=== PATIENT | male | born 1945 | race Caucasian/White ===

== ENCOUNTER 2016-08-27 06:24 | Day surgery (SDC) | payer BC ==
[2016-08-20 11:19] LABS: HEMOGLOBIN 12.6 g/dL (13.6-17.8)
[2016-08-20 11:21] LABS: HEMATOCRIT 36.8 % (40.0-51.0)
--- NOTE | ~2016-08-27 | OP ---
Record Of Operation [facility] [address] [place]. [address] NAME: SUNDAY BENITEZ : 43 STATUS : REG [facility]#: [id number] AGE: 70 ADM/REG DATE : 08/27/16 MR#: [id number] REPORT SERV DATE: 08/27/16 DICTATED BY: JASBIR ARMENDARIZ III DATE: 08/27/16 REPORT STATUS : Draft TRANSCRIBED BY: MODL DATE: 08/27/16 DATE OF PROCEDURE: 08/27/2016 PREOPERATIVE DIAGNOSIS: Elevated prostate-specific antigen. POSTOPERATIVE DIAGNOSIS: Elevated prostate-specific antigen, enlarged prostate. PROCEDURES: 1. Transrectal ultrasound of prostate gland. 2. Ultrasound guidance. 3. Needle biopsy of the prostate. SURGEON: Jasbir Armendariz M.D. ANESTHESIA: MAC. INDICATIONS: Mr. Benitez is a 70-year-old white male with elevated PSA of 7. He has been counseled. Consent is obtained for the above procedure. DESCRIPTION OF PROCEDURE: After consent was obtained, the patient was identified, and he was taken to the OR. He was left on the stretcher and placed in the left lateral decubitus position. MAC anesthesia was administered. Ultrasound probe was inserted. A three- dimensional volume was 86 mL. Ultrasound guidance was activated and needle biopsy was then performed. There were two cores from both the right and left base, two cores from the right and left apex, and then three cores from the right and left mid gland. There was no excessive bleeding noted. A hemorrhoid roll was then placed in the rectum. The patient was then taken to phase II recovery in stable condition. PH/MODL Jasbir Armendariz III, M.D. / [id number] CC: Jaja Meyers III, M.D.
[~2016-08-27 06:24] MED LIST: ASAB PO; VITAMINS PO
[2016-11-14] MEDS ORDERED: FISH-EPA1000 MG PO (14:35)
[2016-11-14] MEDS ORDERED: OCUVITE PO (14:36)
[2016-11-14] MEDS ORDERED: TRIPLEFLEX PO (14:36)
[2016-11-14] MEDS ORDERED: MULTIVITAMI1 PO (14:36)
== END 2016-08-27 16:45 | disposition home or self-care (01) ==
LOC: SDC 06:24
PROVIDERS: Urology
PROC: 0VB03ZX Excision of Prostate, Percutaneous Approach, Diagnostic (ICD-10-PCS; principal; 2016-08-27 07:45)
DX: C61 Malignant neoplasm of prostate (principal); R97.20 Elevated prostate specific antigen [PSA]; M19.90 Unspecified osteoarthritis, unspecified site; Z98.41 Cataract extraction status, right eye; Z98.42 Cataract extraction status, left eye; Z96.1 Presence of intraocular lens; Z98.890 Other specified postprocedural states; Z87.891 Personal history of nicotine dependence
CPT/HCPCS: 76872; 76942; 85014; 85018; 88305; 88344; 93005; J2250